=== PATIENT | male | born 1995 | race Caucasian/White ===

== ENCOUNTER 2019-02-01 23:39 | Emergency (ER) | payer OTHER ==
--- NOTE | 2019-02-01 23:41 | ER Report ---
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 Patient states he felt this way one week ago, but his symptoms resolved spontaneously. After drinking a lot of water. Patients under tremendous stress. Patient denies history of cardiac disease. Patient denies caffeine to excess. Patient seems very anxious and tremulous. He is tachycardic to the 130s on the cardiac catheterization technician. Patient denies substance abuse or alcohol use. REVIEW OF SYSTEMS: Respiratory: No cough, no dyspnea. Cardiovascular: As above Gastrointestinal: No vomiting, no abdominal pain. Musculoskeletal: No back pain. Allergies: Coded Allergies: No Known Drug Allergies (Unverified , 02/01/19) Home Meds Active Scripts Atenolol (ATENOLOL) 25 Mg Tablet, 1-2 TAB PO QDAY PRN for fast heart rate, #30 TAB Prov:KENNETH HOANG DO 02/02/19 Lorazepam (LORAZEPAM) 1 Mg Tab, 1 TAB PO Q12H PRN for ANXIETY, #6 TAB Prov:RACHEL HOANGAna Lees DO 02/02/19 Reviewed Nurses Notes: Yes Old Medical Records Reviewed: Yes Constitutional Vital Sign - Last 24 Hours 02/01/19 02/01/19 02/01/19 02/01/19 23:39 23:42 23:43 23:54 Temp 97.4 Pulse ??? 115 132 Resp 16 30 B/P (MAP) 169/110 (129) 169/110 Pulse Ox 97 97 O2 Delivery Room Air 02/02/19 02/02/19 02/02/19 02/02/19 00:00 00:09 00:24 00:30 Pulse 111 106 Resp 18 21 B/P (MAP) 154/105 (121) 141/97 (112) Pulse Ox 97 94 02/02/19 00:39 Pulse 90 Resp 26 Pulse Ox 85 Physical Exam General Appearance: The patient is alert, has no immediate need for airway protection and no current signs of toxicity. Mildly anxious, tachycardic, vital signs show elevated blood pressure. HEENT: Pupils equal and round no injection. Oropharynx without redness or exudate, mucous membranes are moist Respiratory: Chest is non tender, lungs are clear to auscultation. Cardiac: regular rate and rhythm, tachycardic without murmur Gastrointestinal: Abdomen is soft and non tender, no masses, bowel sounds normal. Musculoskeletal: Neck: Neck is supple and non tender. No thyromegaly Extremities have full range of motion and are non tender. No edema, no calf tenderness Skin: No rashes or lesions. DIFFERENTIAL DIAGNOSIS: After history and physical exam differential diagnosis was considered for chest pain including but not limited to myocardial ischemia, pericarditis pulmonary embolus, anxiety, Palpitations, sympathomimetic abuse, ch est wall pain, pleural inflammation and pulmonary infectious causes. Medical Decision Making Data Points Result Diagram: 02/01/19234902/01/192349 Laboratory Hematology Test 02/01/19 23:50 02/02/19 00:00 Red Blood Count 4.70 M/uL (4.00-5.60) Mean Corpuscular Volume 93.2 fL (80.0-96.0) Mean Corpuscular Hemoglobin 32.8 pg (26.0-33.0) Mean Corpuscular Hemoglobin Concent 35.2 g/dL (32.0-36.0) Red Cell Distribution Width 12.0 % (11.5-14.5) Mean Platelet Volume 7.8 fL (7.2-11.1) Neutrophils (%) (Auto) 56.6 % (39.4-72.5) Lymphocytes (%) (Auto) 32.3 % (17.6-49.6) Monocytes (%) (Auto) 9.7 % (4.1-12.4) Eosinophils (%) (Auto) 0.4 % (0.4-6.7) Basophils (%) (Auto) 1.0 % (0.3-1.4) Nucleated RBC Relative Count (auto) 0.0 /100WBC Neutrophils # (Auto) 5.5 K/uL (2.0-7.4) Lymphocytes # (Auto) 3.1 K/uL (1.3-3.6) Monocytes # (Auto) 0.9 K/uL (0.3-1.0) Eosinophils # (Auto) 0.0 K/uL (0.0-0.5) Basophils # (Auto) 0.1 K/uL (0.0-0.1) Nucleated RBC Absolute Count (auto) 0.00 K/uL D-Dimer Quantitative (PE/DVT) < 0.27 ug/ml (0-0.50) Sodium Level 141 mmol/L (137-145) Potassium Level 3.4 mmol/L (3.5-5.0) Chloride Level 104 mmol/L (98-107) Carbon Dioxide Level 23 mmol/L (22-30) Blood Urea Nitrogen 16 mg/dl (9-21) Creatinine 1.00 mg/dl (0.66-1.25) Glomerular Filtration Rate Calc > 60.0 Random Glucose 139 mg/dl (75-110) Calcium Level 9.4 mg/dl (8.4-10.2) Total Bilirubin 0.4 mg/dl (0.2-1.3) Aspartate Amino Transf (AST/SGOT) 19 U/L (0-35) Alanine Aminotransferase (ALT/SGPT) 26 U/L (0-56) Alkaline Phosphatase 62 U/L (0-126) Troponin I < 0.012 ng/ml B-Type Natriuretic Peptide < 5 pg/ml (0-100) Total Protein 7.5 g/dl (6.3-8.2) Albumin 4.5 g/dl (3.5-5.0) Chemistry Test 02/01/19 23:50 02/02/19 00:00 White Blood Count 9.7 k/uL (4.5-11.0) Red Blood Count 4.70 M/uL (4.00-5.60) Hemoglobin 15.4 g/dL (14.0-18.0) Hematocrit 43.8 % (42.0-52.0) Mean Corpuscular Volume 93.2 fL (80.0-96.0) Mean Corpuscular Hemoglobin 32.8 pg (26.0-33.0) Mean Corpuscular Hemoglobin Concent 35.2 g/dL (32.0-36.0) Red Cell Distribution Width 12.0 % (11.5-14.5) Platelet Count 332 K/uL (150-450) Mean Platelet Volume 7.8 fL (7.2-11.1) Neutrophils (%) (Auto) 56.6 % (39.4-72.5) Lymphocytes (%) (Auto) 32.3 % (17.6-49.6) Monocytes (%) (Auto) 9.7 % (4.1-12.4) Eosinophils (%) (Auto) 0.4 % (0.4-6.7) Basophils (%) (Auto) 1.0 % (0.3-1.4) Nucleated RBC Relative Count (auto) 0.0 /100WBC Neutrophils # (Auto) 5.5 K/uL (2.0-7.4) Lymphocytes # (Auto) 3.1 K/uL (1.3-3.6) Monocytes # (Auto) 0.9 K/uL (0.3-1.0) Eosinophils # (Auto) 0.0 K/uL (0.0-0.5) Basophils # (Auto) 0.1 K/uL (0.0-0.1) Nucleated RBC Absolute Count (auto) 0.00 K/uL D-Dimer Quantitative (PE/DVT) < 0.27 ug/ml (0-0.50) Glomerular Filtration Rate Calc > 60.0 Calcium Level 9.4 mg/dl (8.4-10.2) Total Bilirubin 0.4 mg/dl (0.2-1.3) Aspartate Amino Transf (AST/SGOT) 19 U/L (0-35) Alanine Aminotransferase (ALT/SGPT) 26 U/L (0-56) Alkaline Phosphatase 62 U/L (0-126) Troponin I < 0.012 ng/ml B-Type Natriuretic Peptide < 5 pg/ml (0-100) Total Protein 7.5 g/dl (6.3-8.2) Albumin 4.5 g/dl (3.5-5.0) Coagulation Test 02/01/19 23:50 D-Dimer Quantitative (PE/DVT) < 0.27 ug/ml EKG/Imaging EKG Interpretation 12 lead EK Rhythm: Sinus tachycardia, rate 130 bpm [place]: normal QRS: normal ST segments: normal, no evidence of ischemia or dysrhythmia ED Course/Re-evaluation ED Course Patient was admitted to an examination room. H&P was done. The differential diagnoses was considered. On clinical examination. Patient has gross tachycardia and palpitations. Patient appears mildly anxious. I think he is experiencing a panic attack. Patient denies sympathomimetic use to excess. He does admit to drinking significant coughing. Patient's medicated with atenolol 25 mg and Ativan 1 mg. On reevaluation 45 minutes. His lavatory studies are unremarkable. His results are discussed with him. Patient's given a presc ription for atenolol 25 mg and a prescription for Ativan 1 mg 6 for acute panic treatment. Patient advised to follow-up with primary care. Decision to Disposition Date: Feb 02, 2019 Decision to Disposition Time: 00:39 Depart Departure Latest Vital Signs Vital Signs Date Time Temp Pulse Resp B/P (MAP) Pulse Ox O2 Delivery O2 Flow Rate FiO2 02/02/19 00:39 90 26 85 02/02/19 00:30 141/97 (112) 02/01/19 23:43 97.4 Room Air Impression: Primary Impression: Palpitations Additional Impression: Panic anxiety syndrome Condition: Improved Disposition: HOME OR SELF-CARE Referrals: MOIZ GRAVES MD, FARRUKH MD New Scripts Atenolol (ATENOLOL) 25 Mg Tablet 1-2 TAB PO QDAY PRN for fast heart rate, #30 TAB Prov: KENNETH HOANG DO 02/02/19 Lorazepam (LORAZEPAM) 1 Mg Tab 1 TAB PO Q12H PRN for ANXIETY, #6 TAB Prov: KENNETH HOANG DO 02/02/19 Patient Instructions: Palpitations (ED), Panic Attack (ED) Additional Instructions: Follow-up with primary care if unimproved in 3-5 days Problem Qualifiers KENNETH HOANG DO Feb 01, 2019 23:41
[2019-02-01] MEDS ORDERED: LORazepam 1 MG TAB PO ONE (23:55)
[2019-02-01] MEDS ORDERED: ATENOLOL 25 MG TAB PO ONE (23:55)
[2019-02-02 00:21] LABS: PLATELET COUNT, AUTOMATED 332 K/uL (150-450)
[2019-02-02 00:30] VITALS: BP 141/97
[2019-02-02] MEDS ORDERED: ATEN-65 PO (00:44)
[2019-02-02] MEDS ORDERED: LOR1 PO (00:44)
--- NOTE | 2019-02-02 01:29 | EKG ---
FACILITY: [facility] PATIENT NAME: MAX LEPE : [id number] MR: [id number] V: [id number] EXAM DATE: ORDERING PHYSICIAN: KENNETH HOANG TECHNOLOGIST: MITCHELL Rogers Reason : Blood Pressure : / mmHG Vent. Rate : 130 BPM Atrial Rate : 130 BPM P-R Int : 136 ms QRS Dur : 096 ms QT Int : 304 ms P-R-T Axes : 079 080 056 degrees QTc Int : 447 ms Sinus tachycardia Otherwise normal ECG No previous ECGs available Confirmed by CLAUDE TILLMAN ([id number]) on 02/02/2019 6:28:46 AM Referred By: Confirmed By:CLAUDE TILLMAN
== END 2019-02-02 00:46 | disposition home or self-care (01) ==
LOC: ER 23:48
DX: R00.2 Palpitations (principal); F41.0 Panic disorder [episodic paroxysmal anxiety]; R05 Cough
CPT/HCPCS: 82040; 82247; 82310; 82374; 82435; 82565; 82947; 83880; 84075; 84132; 84155; 84295; 84443; 84450; 84460; 84484; 84520; 85025; 85379; 93005; 99283